=== PATIENT | female | born 1940 | race Caucasian/White ===

== ENCOUNTER 2016-07-07 12:20 | Observation (INO) | payer MEDICARE, OTHER ==
--- NOTE | ~2016-07-07 | HP ---
History And Physical [id number] [place]. [address] NAME: CORAL HUBBARD : 39 STATUS : ADM Suzi PAT#: [id number] AGE: 75 ADM/REG DATE : 07/07/16 MR#: [id number] REPORT SERV DATE: 07/08/16 DICTATED BY: DATE: REPORT STATUS : Draft TRANSCRIBED BY: MODL DATE: 07/07/16 DATE OF ADMISSION: 07/07/2016 REASON FOR ADMISSION: End-stage renal disease, volume overload, and shortness of breath with exacerbation of CHF. HISTORY OF PRESENT ILLNESS: This is a fairly pleasant 75-year-old female patient, who dialyzes on a Sunday, Sunday, Sunday pattern at [facility] and she states that she has been feeling "worse" of late over the last 24 hours. Her daughter accompanies her to the emergency department today and states that her mother has been noncompliant over the last day and a half, restricting her fluid intake, and did not attend hemodialysis today as she felt "poorly." The patient is here for evaluation due to increasing shortness of breath and states that she has felt poorly over the last 24 hours. She denies current chest pain. No active nausea, vomiting, or diarrhea. She is noticeably short of breath to evaluation but not overtly tachypneic. The patient's family member is at bedside during evaluation and provided assistance with current HPI and complaint. PAST MEDICAL HISTORY: Unavailable through active available charts. Daughter provides some level of past medical history including end-stage renal disease, Sunday, Sunday, Sunday hemodialysis at [facility] via right subclavian access; hypertension; CHF; and diabetes mellitus. REVIEW OF SYSTEMS: Review of systems is completed. Please see HPI for pertinent details. SOCIAL HISTORY: No ETOH. No illicit drugs. No tobacco. Recent noncompliance with fluid restrictions as listed above. FAMILY HISTORY: Noncontributory and not reviewed in this admission process. MEDICATIONS AND ALLERGIES: Medication and allergies are currently unavailable and are being gathered by the pharmacy staff as dictation is underway and will be addressed post completion by their service. PHYSICAL EXAMINATION: VITAL SIGNS: Blood pressure 131/48, temperature 98.2, respiratory rate 20, 96% on 2 L, heart rate is 61 beats per minute and regular. GENERAL: She is a chronically ill-appearing, obese, female patient, short of breath, but not overtly tachypneic or distressed during evaluation. She was somewhat anxious. HEENT: Normocephalic and atraumatic. Normal ocular movements. No scleral icterus. No conjunctival pallor is appreciated. NECK: Supple without thyromegaly. No JVD or mass. CHEST: Shows positive S1 and S2. No rubs. No Gallops. LUNGS: Show harsh rhonchi throughout the lower 2/3 bilaterally. No appreciable wheezes. Normal expansion and effort bilaterally. She is nonlabored but is somewhat tachypneic. History And Physical [address] [address] NAME: CORAL HUBBARD : 39 STATUS : ADM Suzi PAT#: [id number] AGE: 75 ADM/REG DATE : 07/07/16 MR#: [id number] REPORT SERV DATE: 07/08/16 DICTATED BY: DATE: REPORT STATUS : Draft TRANSCRIBED BY: MODL DATE: 07/07/16 GI: Shows an obese abdomen with positive bowel sounds in all four quadrants. No appreciable mass or tenderness. : Deferred. NEUROLOGIC: She appears to be grossly intact. Nonfocal. SKIN: Warm dry, and intact on the visualized surfaces. No rashes, lesions, or ecchymosis. NEUROLOGIC: She is appropriate in mood and affect. LABORATORY DATA: Pertinent laboratories and imaging: B-natriuretic peptide 2009.8. ABG: PH is 7.46, pCO2 of 38, PO2 of 46, base excess 2.4, HCO3 of 26.3, oxygen saturation at 82%. Comprehensive metabolic panel: Sodium 145, potassium 3.7, chloride 107, CO2 of 27, BUN 29, creatinine 2.87. Reflected GFR at 18 mL/minute, calcium of 8, glucose of 150, albumin 3.0, alkaline phos 78. ALT and AST at 15 and 20 respectively. CBC: White blood cell count 5.5, RBC 3.23, hemoglobin 9.8, hematocrit 31.2, platelets 225. PA chest and lat: CHF with small pleural effusions and bibasilar atelectasis. IMPRESSION AND PLAN: End-stage renal disease, Sunday, Sunday, Sunday, Ryan PADILLA now presenting to [facility] with a complaint of shortness of breath, dyspnea with volume overload noted, reasonably stable blood gas, but somewhat short of breath, but not overly tachypneic. The patient will be diuresed through dialysis this evening for 2 hours. We will return her to the dialysis unit for further diuresis and dialysis in the morning. As no other comorbid conditions are currently apparent, we will likely dismiss the patient in stable post completion of hemodialysis in the next 24 hours to home and follow the patient back in her usual dialysis unit. Home medications will be addressed as they become available. Further modification of treatment plan may be made based on clinical presentation of the patient, laboratory results, further consultation with renal attending. The patient will be admitted as observation for Nephrology service. /REGINA Craig Marshall NP / [id number] CC: Jori Kamara M.D.
[2016-07-07 14:21] LABS: BASOPHILS 0.5 %; BASOPHILS ABSOLUTE 0.03 10/3/uL (0.0-0.16); EOSINOPHILS 0.4 %; EOSINOPHILS ABSOLUTE 0.02 10/3/uL (0.0-0.53); ER CBC TAT 0 Hrs 07 Mins; HEMATOCRIT 31.2 % (36.0-48.0); HEMOGLOBIN 9.8 g/dL (12.0-16.0); IMMATURE GRANULOCYTES 0.2 %; IMMATURE GRANULOCYTES ABSOLUTE 0.01 10/3/uL (0.0-0.11); LYMPHOCYTES 10.1 %; LYMPHOCYTES ABSOLUTE 0.56 10/3/uL (0.67-4.30); MEAN CORPUS HGB CONC 31.4 g/dL (32.0-36.0); MEAN CORPUSCULAR HEMOGLOB 30.3 pg (26.0-34.0); MEAN CORPUSCULAR VOLUME 96.6 fL (80-100); MEAN PLATELET VOLUME 9.1 fL (9.2-13.0); MONOCYTES 0.9 %; MONOCYTES ABSOLUTE 0.05 10/3/uL (0.21-1.20); NEUTROPHILS 87.9 %; NEUTROPHILS ABSOLUTE 4.85 10/3/uL (2.02-8.40); PLATELET COUNT 225 10/3/uL (150-400); RBC DISTRIBUTION WIDTH 16.2 % (12.0-16.0); RED CELL COUNT 3.23 10/6/uL (4.0-5.6); WHITE BLOOD CELLS 5.5 10/3/uL (4.5-10.5)
[2016-07-07 14:25] LABS: MANUAL DIFF NO %
[2016-07-07 14:33] LABS: A/G RATIO 0.8 (0.7-1.9); ALKALINE PHOSPHATASE 78 U/L (45-117); BUN (BLOOD UREA NITROGEN) 29 MG/DL (6-23); CHLORIDE, SERUM 107 MMOL/L (96-112); CO2 (CARBON DIOXIDE) 27 MMOL/L (24-34); CREATININE 2.87 MG/DL (0.55-1.02); GFR AFRICAN AMERICAN 18 ML/MIN (>=60); GFR NON AFRICAN AMERICAN 15 ML/MIN (>=60); GLOBULIN 3.8 G/DL (2.5-4.1); GLUCOSE, SERUM 150 MG/DL (60-99); POTASSIUM, SERUM 3.7 MMOL/L (3.5-5.3); SGOT(AST) 20 U/L (5-40); SGPT(ALT) 15 U/L (5-65); SODIUM, SERUM 145 MMOL/L (135-148); TOTAL BILIRUBIN 0.6 MG/DL (0-1.2); TOTAL PROTEIN 6.8 G/DL (6.0-8.5)
[2016-07-07 15:23] LABS: BE (BASE EXCESS) 2.4 MEQ/L (0 +/- 2.5); CARBOXYHEMOGLOBIN 1.5 % (0-3); HCO3 (ACTUAL BICARBONATE) 26.3 MEQ/L (23-27); HEMOBLOGIN CONTENT 10.1 G/DL (12-16); INSTRUMENT SERIAL # 8087; METHEMOGLOBIN 0.3 % (0-3); O2 CONTENT 11.4 VOL% (18-24); PCO2 (CO2 TENSION) 38 MMHG (35-45); PO2 (O2 TENSION) 46 MMHG (79-93); SAMPLE Arterial; pH 7.46 (7.37-7.43)
[2016-07-07 15:24] LABS: OPERATOR ID 32214
[2016-07-07] MEDS ORDERED: PRILOSEC40 MG PO (17:18)
[2016-07-07] MEDS ORDERED: ADALAT CC30 MG PO (17:18)
[2016-07-07] MEDS ORDERED: L40 PO (17:18)
[2016-07-07] MEDS ORDERED: RENVELA800 MG PO (17:19)
[2016-07-07] MEDS ORDERED: APRES25 PO (17:19)
[2016-07-07] MEDS ORDERED: PRAVACHOL80 MG PO (17:20)
[2016-07-07] MEDS ORDERED: ELIQUIS 2.5 MG2.5 MG PO (17:20)
[2016-07-07] MEDS ORDERED: ROCALTROL 0.0.25 MCG PO (17:20)
[2016-07-07] MEDS ORDERED: COMBIVENT RESPIM4 GM INH (17:21)
[2016-07-07] MEDS ORDERED: COREG6 PO (17:21)
[2016-07-07] MEDS ORDERED: X5 PO (17:22)
[2016-07-07] MEDS ORDERED: DUONEB INH (17:23)
[2016-07-07] MEDS ORDERED: ACET500CAP PO (17:24)
[2016-07-07] MEDS ORDERED: ASAB PO (17:24)
[2016-07-08 06:26] LABS: BASOPHILS 0 %; EOSINOPHILS 0 %; HEMATOCRIT 28.4 % (36.0-48.0); HEMOGLOBIN 9.2 g/dL (12.0-16.0); IMMATURE GRANULOCYTES 0.2 %; IMMATURE GRANULOCYTES ABSOLUTE 0.01 10/3/uL (0.0-0.11); LYMPHOCYTES 14.4 %; LYMPHOCYTES ABSOLUTE 0.58 10/3/uL (0.67-4.30); MANUAL DIFF NO %; MEAN CORPUS HGB CONC 32.4 g/dL (32.0-36.0); MEAN CORPUSCULAR HEMOGLOB 30.8 pg (26.0-34.0); MEAN PLATELET VOLUME 9.3 fL (9.2-13.0); MONOCYTES 2.2 %; MONOCYTES ABSOLUTE 0.09 10/3/uL (0.21-1.20); NEUTROPHILS 83.2 %; NEUTROPHILS ABSOLUTE 3.36 10/3/uL (2.02-8.40); PLATELET COUNT 219 10/3/uL (150-400); RBC DISTRIBUTION WIDTH 15.7 % (12.0-16.0); RED CELL COUNT 2.99 10/6/uL (4.0-5.6)
[2016-07-08 06:38] LABS: ALBUMIN 2.8 G/DL (3.5-5.0); BUN (BLOOD UREA NITROGEN) 26 MG/DL (6-23); CALCIUM, SERUM 8.1 MG/DL (8.5-10.4); CHLORIDE, SERUM 105 MMOL/L (96-112); CO2 (CARBON DIOXIDE) 24 MMOL/L (24-34); CREATININE 2.39 MG/DL (0.55-1.02); GFR AFRICAN AMERICAN 22 ML/MIN (>=60); GFR NON AFRICAN AMERICAN 19 ML/MIN (>=60); GLUCOSE, SERUM 187 MG/DL (60-99); PHOSPHORUS, SERUM 4.5 MG/DL (2.5-4.5); POTASSIUM, SERUM 3.8 MMOL/L (3.5-5.3); SODIUM, SERUM 141 MMOL/L (135-148)
[2016-08-11] MEDS ORDERED: ATROVENTUD INH (11:06)
== END 2016-07-08 19:32 | disposition home or self-care (01) ==
LOC: ER 12:20 → 2SO 20:04
PROVIDERS: Nurse Practitioner; Registered Nurse
DX: I13.2 Hypertensive heart and chronic kidney disease with heart failure and with stage 5 chronic kidney disease, or end stage renal disease (principal); E11.22 Type 2 diabetes mellitus with diabetic chronic kidney disease; N18.6 End stage renal disease; I50.9 Heart failure, unspecified; Z99.2 Dependence on renal dialysis; Z91.15 Patient's noncompliance with renal dialysis; Z79.01 Long term (current) use of anticoagulants; Z79.82 Long term (current) use of aspirin; Z79.83 Long term (current) use of bisphosphonates; Z79.899 Other long term (current) drug therapy
CPT/HCPCS: 36600; 71020; 80053; 80069; 82805; 82962; 83880; 85025; 87040; 87070; 87205; 93005; 94640; 96374; 96375; 96376; 99285; A9270-GY; G0257; G0378; J2405; J2930; Q9968

== ENCOUNTER 2016-07-30 02:10 | Emergency (ER) | payer MEDICARE, OTHER ==
[~2016-07-30 02:10] MED LIST: ACET500CAP PO; ADALAT CC30 MG PO; APRES25 PO; ASAB PO; COMBIVENT RESPIM4 GM INH; COREG6 PO; DUONEB INH; ELIQUIS 2.5 MG2.5 MG PO; L40 PO; PRAVACHOL80 MG PO; PRILOSEC40 MG PO; RENVELA800 MG PO; ROCALTROL 0.0.25 MCG PO; X5 PO
[2016-08-11] MEDS ORDERED: ATROVENTUD INH (11:06)
== END 2016-07-30 03:47 | disposition home or self-care (01) ==
LOC: ER 02:10
DX: S09.90XA Unspecified injury of head, initial encounter (principal); I25.2 Old myocardial infarction; I10 Essential (primary) hypertension; Z95.0 Presence of cardiac pacemaker; Z79.82 Long term (current) use of aspirin; Z79.899 Other long term (current) drug therapy; W01.10XA Fall on same level from slipping, tripping and stumbling with subsequent striking against unspecified object, initial encounter
CPT/HCPCS: 70450; 99284

== ENCOUNTER 2016-08-17 15:41 | Emergency (ER) | payer MEDICARE, OTHER ==
[~2016-08-17 15:41] MED LIST changes: +ATROVENTUD INH
[2016-08-17 17:23] LABS: BASOPHILS 0.2 %; BASOPHILS ABSOLUTE 0.01 10/3/uL (0.0-0.16); EOSINOPHILS 0.2 %; EOSINOPHILS ABSOLUTE 0.01 10/3/uL (0.0-0.53); HEMATOCRIT 30.6 % (36.0-48.0); HEMOGLOBIN 9.6 g/dL (12.0-16.0); IMMATURE GRANULOCYTES 0.5 %; IMMATURE GRANULOCYTES ABSOLUTE 0.03 10/3/uL (0.0-0.11); LYMPHOCYTES 12.3 %; LYMPHOCYTES ABSOLUTE 0.74 10/3/uL (0.67-4.30); MEAN CORPUS HGB CONC 31.4 g/dL (32.0-36.0); MEAN CORPUSCULAR HEMOGLOB 30.1 pg (26.0-34.0); MEAN CORPUSCULAR VOLUME 95.9 fL (80-100); MEAN PLATELET VOLUME 8.9 fL (9.2-13.0); MONOCYTES 10.1 %; MONOCYTES ABSOLUTE 0.61 10/3/uL (0.21-1.20); NEUTROPHILS 76.7 %; NEUTROPHILS ABSOLUTE 4.62 10/3/uL (2.02-8.40); RBC DISTRIBUTION WIDTH 16.5 % (12.0-16.0); RED CELL COUNT 3.19 10/6/uL (4.0-5.6)
[2016-08-17 17:24] LABS: MANUAL DIFF NO %; PLATELET COUNT 172 10/3/uL (150-400)
[2016-08-17 17:32] LABS: INTERNATIONAL NORMAL RATI 1.5 UNITS (-); PROTIME (NOT ORD) 18.1 SEC (12.0-14.5)
[2016-08-17 17:40] LABS: A/G RATIO 0.6 (0.7-1.9); ALBUMIN 2.3 G/DL (3.5-5.0); ALKALINE PHOSPHATASE 116 U/L (45-117); BUN (BLOOD UREA NITROGEN) 32 MG/DL (6-23); CALCIUM, SERUM 8.1 MG/DL (8.5-10.4); CHLORIDE, SERUM 102 MMOL/L (96-112); CO2 (CARBON DIOXIDE) 27 MMOL/L (24-34); CREATININE 2.92 MG/DL (0.55-1.02); GFR AFRICAN AMERICAN 17 ML/MIN (>=60); GFR NON AFRICAN AMERICAN 15 ML/MIN (>=60); GLOBULIN 3.6 G/DL (2.5-4.1); GLUCOSE, SERUM 159 MG/DL (60-99); POTASSIUM, SERUM 3.8 MMOL/L (3.5-5.3); SGOT(AST) 24 U/L (5-40); SGPT(ALT) < 6 U/L (5-65); SODIUM, SERUM 139 MMOL/L (135-148); TOTAL BILIRUBIN 0.4 MG/DL (0-1.2); TOTAL PROTEIN 5.9 G/DL (6.0-8.5)
== END 2016-08-17 20:22 | disposition home or self-care (01) ==
LOC: ER 15:41
PROVIDERS: Emergency Medicine
DX: M79.602 Pain in left arm (principal); R91.8 Other nonspecific abnormal finding of lung field; K21.9 Gastro-esophageal reflux disease without esophagitis; Z99.2 Dependence on renal dialysis; J44.9 Chronic obstructive pulmonary disease, unspecified; I11.0 Hypertensive heart disease with heart failure; I50.9 Heart failure, unspecified; E78.5 Hyperlipidemia, unspecified; Z88.8 Allergy status to other drugs, medicaments and biological substances; Z79.899 Other long term (current) drug therapy
CPT/HCPCS: 71010; 80053; 85025; 85610; 93971; 96374; 96375; 99284; J1170; J2405

== ENCOUNTER 2016-08-21 13:57 | Inpatient (IN) | payer MEDICARE, OTHER ==
--- NOTE | ~2016-08-21 | HP ---
History And Physical [id number] [facility] [place]. [address] NAME: CORAL DENTON : 39 STATUS : DIS IN PAT#: [id number] AGE: 76 ADM/REG DATE : 08/21/16 MR#: [id number] REPORT SERV DATE: 08/31/16 DICTATED BY: KAMILAH ROSENBAUM DATE: 08/21/16 REPORT STATUS : Draft TRANSCRIBED BY: MODEarnestine DATE: 08/21/16 DATE OF ADMISSION: 08/21/2016 REASON FOR ADMISSION: Arm pain and shortness of breath. HISTORY OF PRESENT ILLNESS: Ms. Denton is a 75-year-old white female who presents today having missed dialysis due to arm pain and who has shortness of breath subsequently. She dialyzes on Sunday, Sunday, and Sunday basis at [facility] and cannot recall when she last dialyzed, although presumably this was on Sunday. She currently has dialysis via a right IJ Perm-Cath. Dr. Lemos created a loop AV graft in her left forearm one week ago on the . The patient was in the emergency room on the complaining of arm pain and had a negative ultrasound for DVT in the left upper extremity and was sent home. At that time, she also had a chest x-ray that showed a persistent 4-cm left perihilar infiltrate that could be post-obstructive pneumonitis or malignancy as well as some edema. The patient cannot recall any further details today and complaints of having a poor memory. PAST MEDICAL HISTORY: Her past medical history includes end-stage renal disease, she dialyzes at [facility] as noted above; high blood pressure; congestive heart failure; and diabetes, off medication. MEDICATIONS: Her home medications appear to include albuterol, Xanax, Eliquis, aspirin, calcitriol, carvedilol, Lasix, hydralazine, nifedipine, omeprazole, Zofran, Percocet, sevelamer, and tramadol. ALLERGIES: THE PATIENT CANNOT RECALL ANY ALLERGIES AT PRESENT. FAMILY HISTORY: Her family history is negative for renal disease. SOCIAL HISTORY: The patient lives with her eldest daughter. She vaguely complaints of poor care from another daughter with whom she is no longer living and states that she used to smoke and drink but does not do so any longer. REVIEW OF SYSTEMS: Limited by her poor memory but otherwise pertinent positives noted in the HPI. PHYSICAL EXAMINATION: VITAL SIGNS: Her temperature is 98.3. Her pulse is 92. Blood pressure 135/60. Respirations 18. O2 sat 99%. Weight is 80 kg. GENERAL: She is a vague anxious elderly white female appearing older than stated age. HEENT: Her sclerae are anicteric. Her mucous membranes are dry. She is tachypneic and appears to have a slightly increased work of breathing on O2. CARDIOVASCULAR: S1 and S2 and regular rate and rhythm without murmurs, rubs, or gallops. LUNGS: Faint scattered wheezes and rales. ABDOMEN: Soft and nontender. She has a right IJ Perm-Cath. Her left AV graft has intact bruit. There is some surrounding dusky erythema and tenderness to palpation. She has 1+ edema in her bilateral arms and less so in her legs. She has some bruising in the left arm History And Physical [address] [place]. [address] NAME: CORAL DENTON : 39 STATUS : DIS IN PAT#: [id number] AGE: 76 ADM/REG DATE : 08/21/16 MR#: [id number] REPORT SERV DATE: 08/31/16 DICTATED BY: KAMILAH ROSENBAUM DATE: 08/21/16 REPORT STATUS : Draft TRANSCRIBED BY: REGINA DATE: 08/21/16 as well. LABORATORY DATA: Chest x-ray shows persistent question of mass and edema. Sodium 138, potassium 4.2, chloride 98, bicarb 27, BUN 58, creatinine 4, calcium 7.7, white count 6.4, hemoglobin 11.3, platelets 181, and INR 1.5. ASSESSMENT AND PLAN: 1. Arm inflammation and tenderness. Given vancomycin in the ER, will continue this pending vascular evaluation to determine whether this is expected postoperative erythema or whether further antibiotics would be useful. The ultrasound was negative for DVT several days ago, and I would defer to vascular additional imaging. 2. End-stage renal disease with missed dialysis and volume overload, will dialyze tomorrow and yield 4 L as tolerated. We will check CT scan after dialysis with and without contrast tomorrow to weigh with this lung mass, and she should need dialysis immediately thereafter. 3. Pain control, discontinue morphine as this may accumulate with the acidity and will use Dilaudid as needed. We will discontinue order for tramadol. She is already on Percocet which can continued. 4. Question of diabetes, we will check hemoglobin A1c. We will allow her to have a renal diet and check BG b.i.d. She does not appear to be on any hypoglycemics. 5. Hypertension, continue home meds. 6. Continue Eliquis. 7. Admit to Nephrology. MADHU/REGINA Kamilah Rosenbaum MD / [id number] CC: Kamilah Rosenbaum MD
--- NOTE | ~2016-08-21 | CN ---
Consultation Report [facility] [address] [place]. [address] NAME: CARMINA DENTON : 39 STATUS : ADM IN PAT#: [id number] AGE: 76 ADM/REG DATE : 08/21/16 MR#: [id number] REPORT SERV DATE: 08/24/16 DICTATED BY: DEAN FANG DATE: 08/23/16 REPORT STATUS : Draft TRANSCRIBED BY: MODL DATE: 08/23/16 CONSULTATION DATE OF CONSULTATION: 08/23/2016 CHIEF COMPLAINT: Shortness of breath in a patient with an incidental finding of a left-sided lung mass. HISTORY OF PRESENT ILLNESS: Mrs. Carmina Denton is chronically ill-appearing 76-year-old white female with a past medical history significant for end-stage renal disease, hypertension, and heart failure, who presents to [facility]'s Emergency Room with complaints of dyspnea and left upper extremity arm pain. It should be noted that Mrs. Denton has been in and out of the hospital repeatedly over the last several months. Mrs. 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 She is not usually require supplemental oxygen. She does take DuoNebs occasionally for her breathing. The patient quit smoking approximately seven years ago, prior to this time, she smoked 2 to 3 packs a day for a period of forty years. She largely denies symptomatology related to obstructive sleep apnea. She has had a declining exercise tolerance as of late, being only able to ambulate from [id number] in her house recently. It should be noted that, the patient was admitted with significant left upper extremity pain and has received aggressive pain medication. That being said, the majority of the following information was garnered from her daughter, who is currently at bedside. From history, the daughter states that Mrs. Denton was in the hospital in [place], [place] for most of the month of April with symptoms related to respiratory failure. More recently, she did have a pacemaker placement for what it sounds like bradycardia. She had a recent surgery on her left arm fistula. She states that, she has not done well since. She had worsening upper extremity arm pain as well as concomitant shortness of breath, which prompted her presentation to [facility]'s Emergency Room. Upon arrival, she was found to have a systolic blood pressure of 145. She was afebrile. She had good oxygen saturations. Initial blood work revealed a white blood cell count of 6400. BUN was 58 and creatinine was 4.02. BNP was over 3000. She did eventually undergo a CT of the chest, which demonstrated a lobulated mass in the left lower lobe measuring 3.7 cm x 4.2 cm x 4.7 cm. Mixed patchy ground-glass infiltrates were appreciated as well. Bilateral pleural effusions were noted as well. Abnormal findings were noted in the pancreatic head as well. For the aforementioned reasons, she has been referred to the Pulmonary service for further assessment. Again, Mrs. Denton is fairly well sedated at this time. She does arouse and will answer questions appropriately. She denies any shortness of breath at rest. She does have a loose cough, but is not producing a great deal of sputum. She denies any recent episodes of wheezing. She denies recurrent pneumonias. She denies any recent episodes of hemoptysis. She denies any change in phonation. Consultation Report [address] [address] NAME: CARMINA DENTON : 39 STATUS : ADM IN [facility]#: [id number] AGE: 76 ADM/REG DATE : 08/21/16 MR#: [id number] REPORT SERV DATE: 08/24/16 DICTATED BY: DEAN FANG DATE: 08/23/16 REPORT STATUS : Draft TRANSCRIBED BY: REGINA DATE: 08/23/16 The patient does have known hypertension as well as dysrhythmia, status post pacemaker placement. She can either confirm nor deny congestive heart failure, although it is noted, she does take diuretics. She currently denies any murmurs, angina, or palpitations. In regard to constitutional symptoms, she currently denies fever, chills, nausea, vomiting, chest pain, abdominal pain. Her main complaint today again is left arm pain. PAST MEDICAL HISTORY: 1. End-stage renal disease. 2. Hypertension. 3. Congestive heart failure. 4. Diabetes - well controlled by report. FAMILY HISTORY: The patient states that her father had lung cancer. SOCIAL HISTORY: The patient is . She has two daughters, who are in fairly good health. She previously worked at a [employer], where she may have had excessive exposures to airborne fibers. She currently denies any known exposures to dust, silica, or asbestos. TOBACCO/ALCOHOL: As previously mentioned, the patient quit smoking approximately seven years ago, prior to this time, she smoked 2 to 3 packs a day for a period of forty years. MEDICATIONS: 1. DuoNebs. 2. Xanax 0.5 mg. 3. Eliquis 2.5 mg. 4. Aspirin 81 mg. 5. Carvedilol 6.25 mg. 6. Furosemide 40 mg. 7. Hydralazine 25 mg. 8. Nifedipine 30 mg. 9. Omeprazole 40 mg. 10.Zofran 4 mg. 11.Percocet 5/325. 12.Sevelamer 800 mg. 13.Tramadol 50 mg. ALLERGIES: THE PATIENT HAS ALLERGIES TO "PAIN MEDS". REVIEW OF SYSTEMS: A complete review of systems was performed with pertinent positives and negatives contained within the body of the HPI. PHYSICAL EXAMINATION: Consultation Report [address] [place]. [address] NAME: CARMINA DENTON : 39 STATUS : ADM IN [facility]#: [id number] AGE: 76 ADM/REG DATE : 08/21/16 MR#: [id number] REPORT SERV DATE: 08/24/16 DICTATED BY: DEAN FANG DATE: 08/23/16 REPORT STATUS : Draft TRANSCRIBED BY: REGINA DATE: 08/23/16 VITAL SIGNS: Blood pressure is 132/63, heart rate 64, T-max is 98.8, respiratory rate is 19, SpO2 is 92% on 2 L nasal cannula. GENERAL: Mrs. Denton is a chronically ill appearing 76-year-old white female, who is not currently exhibiting signs of acute distress. SKIN: Skin with appropriate texture and turgor. HEENT: Head: Skull is normocephalic, atraumatic. Facies symmetric. Eyes: Sclerae anicteric. Ears: Auricles and tragus without pain to palpation. Hearing is grossly intact. Nose: Bilateral nasal patency. Throat: Dentition noted. Lips, oral mucosa, tongue, palate, and pharynx, pink and moist without lesions. NECK: Neck is supple. Trachea midline. THORAX/LUNGS: Thorax is symmetric with equal chest rise. There are few scattered rhonchi appreciated throughout. CARDIOVASCULAR: Regular rate and rhythm. No murmurs, rubs, or gallops. Anterior chest without thrills, heaves, or lifts. ABDOMEN: Soft, nondistended, nontender. PERIPHERAL VASCULAR: No edema. MUSCULOSKELETAL: No evidence of deformity. EXTREMITIES: Her left upper extremity is bandaged. NEUROLOGIC: Good muscle, bulk, and tone bilaterally. PSYCHIATRIC: The patient does awake to voice and answers questions appropriately. She is orientated to person and place. ACCESSORY DATA: Reveals a white blood cell count of 6300, hemoglobin and hematocrit are 10.4 and 33.0, platelets are 209. PTT, PT/INR, 39.2, 17.5, and 1.5. Procalcitonin is 0.23. BNP is 3015.6. CT of the chest reveals a lobulated mass in the left lower lobe measuring 3.7 x 4.2 x 4.7 cm concerning for primary lung neoplasm. IMPRESSION: 1. Left upper extremity arm pain. 2. Left lower lobe lung mass concerning for primary lung neoplasm. 3. Clinical chronic obstructive pulmonary disease. 4. End-stage renal disease. 5. Bilateral pleural effusions. 6. 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 PLAN: 1. I did have the opportunity to review the imaging studies with both the patient and the daughter. At this time, the patient is unsure whether she wants to proceed with tissue biopsy. That being said, the family seems to be more motivated in this regard. Given the patient is on some level of sedation, we will readdress this tomorrow when she is more clear. We will hold anticoagulation in preparation for potential biopsy. We discussed both the risks, benefits, and alternatives to bronchoscopy versus a CT-guided fine-needle aspiration. I did briefly explained to the patient and family that if this was a primary lung that there would be limited therapeutic options available to her given her recent level of debility. Consultation Report [id number] [facility] [place]. [address] NAME: CARMINA DENTON : 39 STATUS : ADM IN [facility]#: [id number] AGE: 76 ADM/REG DATE : 08/21/16 MR#: [id number] REPORT SERV DATE: 08/24/16 DICTATED BY: DEAN FANG DATE: 08/23/16 REPORT STATUS : Draft TRANSCRIBED BY: MODL DATE: 08/23/16 2. In regard to the patient's clinical COPD, we will place her on a full armamentarium and nebulized medications. 3. In regard to the patient's bilateral pleural effusions, these are likely secondary to her volume overload. We have no plans for invasive procedure at this time. The aforementioned impression and plan has been discussed with Dr. Beatty, who will follow further recommendations. We thank you for this consult and look forward to participating in the care of Mrs. Carmina Denotn. GBS/MODL Dean Fang PA-C / [id number] CC: Tarik Lilly MD
--- NOTE | ~2016-08-21 | DS ---
Discharge Summary [facility] [address] [place]. [address] NAME: CORAL HUBBARD : 38 STATUS : DIS IN PAT#: [id number] AGE: 76 ADM/REG DATE : 08/21/16 MR#: [id number] REPORT SERV DATE: 09/05/16 DICTATED BY: KAMILAH ROSENBAUM DATE: 09/04/16 REPORT STATUS : Draft TRANSCRIBED BY: REGINA DATE: 09/04/16 Data Collection from hospitalization DISCHARGE DIAGNOSES: 1. Lung mass. 2. Infected arteriovenous fistula. 3. End-stage renal disease. 4. Hypertension. 5. Chronic obstructive pulmonary disease. 6. Pleural effusion. 7. Diabetes. 8. Congestive heart failure. 9. Former smoker. CONSULTATIONS: Dean Busch PA-C. PROCEDURES PERFORMED: CT scan of the chest with contrast on 08/21/2016. DISCHARGE MEDICATIONS: 1. DuoNeb inhale solution one nebulized inhaler four times a day. 2. Xanax 0.5 mg twice a day. 3. Aspirin 81 mg daily. 4. Coreg 6.25 mg twice a day. 5. Lasix 40 mg daily. 6. Apresoline 25 mg three times a day with meal. 7. Adalat CC 30 mg daily. 8. Prilosec 40 mg daily. 9. Zofran 4 mg every 6 hours. 10.Percocet 5/325 mg half tablet every 6 hours as needed. 11.Renvela 800 mg three times a day with meals. 12.Ultram 50 mg one to two tablets every 4-6 hours as needed. 13.She was instructed not to continue calcitriol or Eliquis. CONDITION AT DISCHARGE: Stable. DISPOSITION: The patient was discharged to [facility]. HOSPITAL COURSE: This is a 76-year-old female who presented on the day of this admission, having missed her dialysis due to arm pain, she had shortness of breath subsequently. She dialyzes on Mondays, Wednesdays, and Fridays. She could not recall when she last dialyzed, although it was presumably on the previous Sunday. She currently has dialysis via a right IJ PermCath. Dr. Lemos created a loop AV graft in the left forearm one week prior to this admission, on . She was in the emergency room on the complaining of arm pain and had a negative ultrasound for DVT in the left upper extremity and was sent home. At that time she also had a chest x-ray that showed persistent 4 cm left perihilar infiltrate that could be postobstructive pneumonitis or malignancy as well as some edema. The patient was admitted to the hospital at this time for further evaluation and treatment. Discharge Summary [facility] [id number] [place]. [address] NAME: CORAL HUBBARD : 38 STATUS : DIS IN PAT#: [id number] AGE: 76 ADM/REG DATE : 08/21/16 MR#: [id number] REPORT SERV DATE: 09/05/16 DICTATED BY: KAMILAH ROSENBAUM DATE: 09/04/16 REPORT STATUS : Draft TRANSCRIBED BY: REGINA DATE: 09/04/16 Upon admission, chest x-ray showed persistent question of mass and edema. Creatinine level was 4. She was given vancomycin in the emergency room. She would dialyze the following day. A CT scan after dialysis was requested. Dilaudid would be given as needed for pain. Tramadol was stopped. She was already on Percocet which was continued. Hemoglobin A1c was going to be performed. She was going to be placed on a renal diet. Eliquis was continued as well as her home blood pressure medications. CT scan of the chest with contrast was performed. There was a lobulated mass in the left lower lobe measuring up to 37 x 42 x 47 mm abetting the lateral pleural surface concerning for primary lung neoplasm. There were mixed patchy ground glass and tree-in-bud infiltrates in the right upper lobe and right lower lobe likely infectious/inflammatory. There were small right and small to moderate left pleural effusion. There was some compressive atelectasis in the lower lobes of both lungs. There were multiple discrete subcentimeter mediastinal and hilar lymph nodes. There was mild cardiomegaly. There was a mildly lobulated cystic mass in the medial pancreatic head with some septations measuring up to 23 x 32 mm. There was a cirrhotic appearance to the liver. The following day, hemodialysis therapy was performed. The patient did have some erythema and swelling at the site of the AV graft. On 08/23/2016, her left arm looked better. Her arm pain had improved. She was seen by Dean Busch regarding shortness of breath with incidental finding of left-sided lung mass. 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 She does not usually require supplemental oxygen. She does take DuoNebs occasionally for her breathing. She quit smoking approximately seven years ago, but prior to that time, she smoked two to three packs per day for 40 years. She largely denies symptomatology related to obstructive sleep apnea. She had declining exercise tolerance lately. We went over the imaging studies with the patient and her daughter. At this time, the patient was unsure whether she wanted to proceed with tissue biopsy, her family did seem to be more motivated in this regard. Anticoagulation would be held in preparation for a potential biopsy. It was explained to the patient and her family that if this was a primary lung that there would be limited therapeutic options available to her given her recent level of debility. It was felt that her bilateral pleural effusions were likely secondary to volume overload. Her arm did look somewhat better. There was less erythema. On 08/25/2016, the patient refused bronchoscopy and was wanting to go home. She was refusing any procedures or dialysis. End of life discussion was held with the patient and her family, who were to choosing to pursue hospice. She did not want any further hemodialysis, she was going to go home with hospice care. Discharge instructions were given. Due to her stable condition, she was discharged home to be followed by [facility] with the above-stated instructions. Information collected by: Sharita Carbajal I submit the above information as my discharge summary. YORDY/REGINA Kamilah Rosenbaum MD / [id number] Discharge Summary [address] [address] NAME: CORAL HUBBARD : 38 STATUS : DIS IN PAT#: [id number] AGE: 76 ADM/REG DATE : 08/21/16 MR#: [id number] REPORT SERV DATE: 09/05/16 DICTATED BY: KAMILAH ROSENBAUM DATE: 09/04/16 REPORT STATUS : Draft TRANSCRIBED BY: REGINA DATE: 09/04/16 CC: Kamilah Rosenbaum MD [facility]
[2016-08-21 15:23] LABS: BASOPHILS 0.3 %; BASOPHILS ABSOLUTE 0.02 10/3/uL (0.0-0.16); EOSINOPHILS 0.2 %; EOSINOPHILS ABSOLUTE 0.01 10/3/uL (0.0-0.53); ER CBC TAT 0 Hrs 07 Mins; HEMATOCRIT 34.6 % (36.0-48.0); HEMOGLOBIN 11.3 g/dL (12.0-16.0); IMMATURE GRANULOCYTES 0.6 %; IMMATURE GRANULOCYTES ABSOLUTE 0.04 10/3/uL (0.0-0.11); LYMPHOCYTES 15.3 %; LYMPHOCYTES ABSOLUTE 0.98 10/3/uL (0.67-4.30); MANUAL DIFF NO %; MEAN CORPUS HGB CONC 32.7 g/dL (32.0-36.0); MEAN CORPUSCULAR HEMOGLOB 31.2 pg (26.0-34.0); MEAN CORPUSCULAR VOLUME 95.6 fL (80-100); MEAN PLATELET VOLUME 9.3 fL (9.2-13.0); MONOCYTES 4.5 %; MONOCYTES ABSOLUTE 0.29 10/3/uL (0.21-1.20); NEUTROPHILS 79.1 %; NEUTROPHILS ABSOLUTE 5.06 10/3/uL (2.02-8.40); PLATELET COUNT 181 10/3/uL (150-400); RBC DISTRIBUTION WIDTH 16.2 % (12.0-16.0); RED CELL COUNT 3.62 10/6/uL (4.0-5.6); WHITE BLOOD CELLS 6.4 10/3/uL (4.5-10.5)
[2016-08-21 15:40] LABS: A/G RATIO 0.6 (0.7-1.9); ALBUMIN 2.5 G/DL (3.5-5.0); ALKALINE PHOSPHATASE 118 U/L (45-117); CALCIUM, SERUM 7.7 MG/DL (8.5-10.4); CHLORIDE, SERUM 98 MMOL/L (96-112); CO2 (CARBON DIOXIDE) 27 MMOL/L (24-34); GLOBULIN 4.1 G/DL (2.5-4.1); POTASSIUM, SERUM 4.2 MMOL/L (3.5-5.3); SGOT(AST) 37 U/L (5-40); SGPT(ALT) 6 U/L (5-65); SODIUM, SERUM 138 MMOL/L (135-148); TOTAL BILIRUBIN 0.8 MG/DL (0-1.2); TOTAL PROTEIN 6.6 G/DL (6.0-8.5)
[2016-08-21 15:41] LABS: BUN (BLOOD UREA NITROGEN) 58 MG/DL (6-23); CREATININE 4.02 MG/DL (0.55-1.02); GFR AFRICAN AMERICAN 12 ML/MIN (>=60); GFR NON AFRICAN AMERICAN 10 ML/MIN (>=60); GLUCOSE, SERUM 119 MG/DL (60-99); INTERNATIONAL NORMAL RATI 1.5 UNITS (-)
[2016-08-21 15:42] LABS: PARTIAL THROMBO TIME 41.1 SEC (22.5-37.2)
[2016-08-21 15:43] LABS: LACTATE 0.8 MMOL/L (0.3-2.4)
[2016-08-21 16:10] LABS: ANISOCYTOSIS 1+ (5-10/OIF) (0-5/OIF); BAND NEUTROPHILS 10 %; BASOPHILS 1 %; BASOPHILS ABSOLUTE (CALC) 0.06 10/3/uL (0.0-0.16); ER DIFF TAT 0 Hrs 54 Mins; LYMPHOCYTES 18 %; LYMPHOCYTES ABSOLUTE (CALC) 1.15 10/3/uL (0.67-4.30); MONOCYTES 1 %; MONOCYTES ABSOLUTE (CALC) 0.06 10/3/uL (0.21-1.20); NEUTROPHILS ABSOLUTE (CALC) 5.12 10/3/uL (2.02-8.40); PLATELET ESTIMATE ADQ (ADEQUATE); SEGMENTED NEUTROPHIL (0) 70 %; TOTAL NUCLEATED CELLS 100
[2016-08-21 16:11] LABS: BURR CELLS 1+ (3-10/OIF) (0-2/OIF); OVALOCYTES 1+ (3-10/OIF) (0-2/OIF)
[2016-08-21 16:12] LABS: TEARDROP SHAPED RBCS OCC (0-2/OIF)
[2016-08-21 16:17] LABS: PROCALCITONIN 0.23 ng/mL (<0.5)
[2016-08-21] MEDS ORDERED: ELIQUIS 2.5 MG2.5 MG PO (20:59)
[2016-08-21] MEDS ORDERED: PRILOSEC40 MG PO (21:00)
[2016-08-21] MEDS ORDERED: ADALAT CC30 MG PO (21:00)
[2016-08-21] MEDS ORDERED: COREG6 PO (21:01)
[2016-08-21] MEDS ORDERED: X5 PO (21:01)
[2016-08-21] MEDS ORDERED: ROCALTROL 0.0.25 MCG PO (21:01)
[2016-08-21] MEDS ORDERED: L40 PO (21:01)
[2016-08-21] MEDS ORDERED: APRES25 PO (21:02)
[2016-08-21] MEDS ORDERED: RENVELA800 MG PO (21:03)
[2016-08-21] MEDS ORDERED: ASAB PO (21:25)
[2016-08-21] MEDS ORDERED: PCET PO ×2 (21:26→21:30)
[2016-08-21] MEDS ORDERED: ZOFRAN4 PO (21:27)
[2016-08-21] MEDS ORDERED: ULTRAM50 PO (21:28)
[2016-08-21] MEDS ORDERED: DUONEB INH (21:33)
[2016-08-22 06:23] LABS: BASOPHILS 0.2 %; BASOPHILS ABSOLUTE 0.01 10/3/uL (0.0-0.16); EOSINOPHILS 0.7 %; EOSINOPHILS ABSOLUTE 0.04 10/3/uL (0.0-0.53); HEMOGLOBIN 10.1 g/dL (12.0-16.0); IMMATURE GRANULOCYTES 0.9 %; IMMATURE GRANULOCYTES ABSOLUTE 0.05 10/3/uL (0.0-0.11); LYMPHOCYTES 20.3 %; LYMPHOCYTES ABSOLUTE 1.16 10/3/uL (0.67-4.30); MEAN CORPUS HGB CONC 33.2 g/dL (32.0-36.0); MEAN CORPUSCULAR HEMOGLOB 31.5 pg (26.0-34.0); MEAN CORPUSCULAR VOLUME 94.7 fL (80-100); MEAN PLATELET VOLUME 9.8 fL (9.2-13.0); MONOCYTES 6.1 %; MONOCYTES ABSOLUTE 0.35 10/3/uL (0.21-1.20); NEUTROPHILS 71.8 %; PLATELET COUNT 188 10/3/uL (150-400); RBC DISTRIBUTION WIDTH 16.3 % (12.0-16.0); RED CELL COUNT 3.21 10/6/uL (4.0-5.6); WHITE BLOOD CELLS 5.7 10/3/uL (4.5-10.5)
[2016-08-22 06:28] LABS: HEMATOCRIT 30.4 % (36.0-48.0); MANUAL DIFF NO %
[2016-08-22 06:29] LABS: INTERNATIONAL NORMAL RATI 1.5 UNITS (-); PARTIAL THROMBO TIME 39.2 SEC (22.5-37.2); PROTIME (NOT ORD) 17.5 SEC (12.0-14.5)
[2016-08-22 06:35] LABS: BUN (BLOOD UREA NITROGEN) 66 MG/DL (6-23); CALCIUM, SERUM 7.3 MG/DL (8.5-10.4); CHLORIDE, SERUM 100 MMOL/L (96-112); CO2 (CARBON DIOXIDE) 25 MMOL/L (24-34); CREATININE 4.34 MG/DL (0.55-1.02); GFR AFRICAN AMERICAN 11 ML/MIN (>=60); GFR NON AFRICAN AMERICAN 9 ML/MIN (>=60); GLUCOSE, SERUM 105 MG/DL (60-99); POTASSIUM, SERUM 4.4 MMOL/L (3.5-5.3); SODIUM, SERUM 137 MMOL/L (135-148)
[2016-08-23 06:06] LABS: BASOPHILS 0.3 %; BASOPHILS ABSOLUTE 0.02 10/3/uL (0.0-0.16); EOSINOPHILS 0.3 %; EOSINOPHILS ABSOLUTE 0.02 10/3/uL (0.0-0.53); HEMOGLOBIN 10.4 g/dL (12.0-16.0); IMMATURE GRANULOCYTES ABSOLUTE 0.06 10/3/uL (0.0-0.11); LYMPHOCYTES 18.2 %; LYMPHOCYTES ABSOLUTE 1.14 10/3/uL (0.67-4.30); MANUAL DIFF NO %; MEAN CORPUS HGB CONC 31.5 g/dL (32.0-36.0); MEAN CORPUSCULAR HEMOGLOB 30.3 pg (26.0-34.0); MEAN CORPUSCULAR VOLUME 96.2 fL (80-100); MEAN PLATELET VOLUME 9.6 fL (9.2-13.0); MONOCYTES 9.4 %; MONOCYTES ABSOLUTE 0.59 10/3/uL (0.21-1.20); NEUTROPHILS 70.8 %; NEUTROPHILS ABSOLUTE 4.42 10/3/uL (2.02-8.40); PLATELET COUNT 209 10/3/uL (150-400); RBC DISTRIBUTION WIDTH 16.3 % (12.0-16.0); RED CELL COUNT 3.43 10/6/uL (4.0-5.6); WHITE BLOOD CELLS 6.3 10/3/uL (4.5-10.5)
[2016-08-23 07:50] LABS: ALBUMIN 2.6 G/DL (3.5-5.0); CALCIUM, SERUM 7.2 MG/DL (8.5-10.4); CHLORIDE, SERUM 102 MMOL/L (96-112); CO2 (CARBON DIOXIDE) 21 MMOL/L (24-34); PHOSPHORUS, SERUM 4.1 MG/DL (2.5-4.5); POTASSIUM, SERUM 4.6 MMOL/L (3.5-5.3); SODIUM, SERUM 139 MMOL/L (135-148)
[2016-08-23 07:51] LABS: BUN (BLOOD UREA NITROGEN) 42 MG/DL (6-23); CREATININE 3.54 MG/DL (0.55-1.02); GFR AFRICAN AMERICAN 14 ML/MIN (>=60); GFR NON AFRICAN AMERICAN 12 ML/MIN (>=60); GLUCOSE, SERUM 164 MG/DL (60-99)
[2016-08-24 07:48] LABS: BASOPHILS 0.2 %; BASOPHILS ABSOLUTE 0.02 10/3/uL (0.0-0.16); EOSINOPHILS 0 %; HEMOGLOBIN 9.5 g/dL (12.0-16.0); IMMATURE GRANULOCYTES 0.7 %; IMMATURE GRANULOCYTES ABSOLUTE 0.06 10/3/uL (0.0-0.11); LYMPHOCYTES 12.1 %; MEAN CORPUS HGB CONC 32.1 g/dL (32.0-36.0); MEAN CORPUSCULAR HEMOGLOB 30.3 pg (26.0-34.0); MEAN CORPUSCULAR VOLUME 94.3 fL (80-100); MEAN PLATELET VOLUME 9.7 fL (9.2-13.0); MONOCYTES 7.7 %; NEUTROPHILS 79.3 %; NEUTROPHILS ABSOLUTE 7.23 10/3/uL (2.02-8.40); PLATELET COUNT 181 10/3/uL (150-400); RBC DISTRIBUTION WIDTH 16.3 % (12.0-16.0); RED CELL COUNT 3.14 10/6/uL (4.0-5.6)
[2016-08-24 07:50] LABS: HEMATOCRIT 29.6 % (36.0-48.0); MANUAL DIFF NO %; WHITE BLOOD CELLS 9.1 10/3/uL (4.5-10.5)
[2016-08-24 08:01] LABS: ALBUMIN 2.4 G/DL (3.5-5.0); CALCIUM, SERUM 7.8 MG/DL (8.5-10.4); CHLORIDE, SERUM 100 MMOL/L (96-112); GLUCOSE, SERUM 139 MG/DL (60-99); POTASSIUM, SERUM 4.3 MMOL/L (3.5-5.3); SODIUM, SERUM 137 MMOL/L (135-148)
[2016-08-24 08:04] LABS: BUN (BLOOD UREA NITROGEN) 53 MG/DL (6-23); CO2 (CARBON DIOXIDE) 26 MMOL/L (24-34); CREATININE 4.23 MG/DL (0.55-1.02); GFR AFRICAN AMERICAN 11 ML/MIN (>=60); GFR NON AFRICAN AMERICAN 9 ML/MIN (>=60); PHOSPHORUS, SERUM 5.1 MG/DL (2.5-4.5)
[2016-08-25 04:47] LABS: BASOPHILS 0.2 %; BASOPHILS ABSOLUTE 0.01 10/3/uL (0.0-0.16); EOSINOPHILS 0.5 %; EOSINOPHILS ABSOLUTE 0.03 10/3/uL (0.0-0.53); HEMATOCRIT 31.6 % (36.0-48.0); IMMATURE GRANULOCYTES ABSOLUTE 0.06 10/3/uL (0.0-0.11); LYMPHOCYTES 21.8 %; LYMPHOCYTES ABSOLUTE 1.36 10/3/uL (0.67-4.30); MEAN CORPUS HGB CONC 31.6 g/dL (32.0-36.0); MEAN CORPUSCULAR HEMOGLOB 30.5 pg (26.0-34.0); MEAN CORPUSCULAR VOLUME 96.3 fL (80-100); MEAN PLATELET VOLUME 9.5 fL (9.2-13.0); MONOCYTES 13.3 %; MONOCYTES ABSOLUTE 0.83 10/3/uL (0.21-1.20); NEUTROPHILS 63.2 %; NEUTROPHILS ABSOLUTE 3.96 10/3/uL (2.02-8.40); PLATELET COUNT 186 10/3/uL (150-400); RBC DISTRIBUTION WIDTH 16.2 % (12.0-16.0); RED CELL COUNT 3.28 10/6/uL (4.0-5.6); WHITE BLOOD CELLS 6.3 10/3/uL (4.5-10.5)
[2016-08-25 04:53] LABS: MANUAL DIFF NO %
[2016-08-25 04:56] LABS: INTERNATIONAL NORMAL RATI 1.4 UNITS (-); PROTIME (NOT ORD) 17.4 SEC (12.0-14.5)
[2016-08-25 05:09] LABS: ALBUMIN 2.3 G/DL (3.5-5.0); CHLORIDE, SERUM 102 MMOL/L (96-112); CO2 (CARBON DIOXIDE) 27 MMOL/L (24-34); GLUCOSE, SERUM 126 MG/DL (60-99); POTASSIUM, SERUM 4.3 MMOL/L (3.5-5.3); SODIUM, SERUM 139 MMOL/L (135-148)
[2016-08-25 05:12] LABS: BUN (BLOOD UREA NITROGEN) 32 MG/DL (6-23); CREATININE 3.11 MG/DL (0.55-1.02); GFR AFRICAN AMERICAN 16 ML/MIN (>=60); GFR NON AFRICAN AMERICAN 14 ML/MIN (>=60); PHOSPHORUS, SERUM 3.4 MG/DL (2.5-4.5)
== END 2016-08-25 15:38 | disposition hospice, home (50) | DRG 314 ==
LOC: ER 13:57 → 3JRC 20:09 → 2SO 22:54 → SDC/OF 08-24 08:59 → 2SO 08-24 09:01
PROVIDERS: Internal Medicine Nephrology; Nurse Practitioner; Physician Assistant; Physician Assistant Medical
PROC: 5A1D60Z (ICD-10-PCS; principal; 2016-08-21)
DX: T82.7XXA Infection and inflammatory reaction due to other cardiac and vascular devices, implants and grafts, initial encounter (principal); N18.6 End stage renal disease; I12.0 Hypertensive chronic kidney disease with stage 5 chronic kidney disease or end stage renal disease; C34.32 Malignant neoplasm of lower lobe, left bronchus or lung; E11.22 Type 2 diabetes mellitus with diabetic chronic kidney disease; J44.9 Chronic obstructive pulmonary disease, unspecified; E87.70 Fluid overload, unspecified; I50.9 Heart failure, unspecified; R91.8 Other nonspecific abnormal finding of lung field; R00.0 Tachycardia, unspecified; Z99.2 Dependence on renal dialysis; Z79.4 Long term (current) use of insulin; Z79.01 Long term (current) use of anticoagulants; Z87.891 Personal history of nicotine dependence; Z95.0 Presence of cardiac pacemaker
CPT/HCPCS: 71010; 71260; 80048; 80053; 80069; 80202; 81001; 82962; 83036; 83605; 83735; 83880; 84145; 85025; 85610; 85730; 87040; 93005; 94640; 94668; 96374; 99285; A9270-GY; G0257; J1170; J1630; J2405; J2550; J3370; P9047